=== PATIENT | female | born 1950 | race Caucasian/White ===

== ENCOUNTER → 2016-07-14 | Outpatient (CLI) | payer MEDICARE, OTHER ==
[~2016-07-14] MED LIST: ASPIRIN325 MG PO; CLOTRIMAZOLE-BE45 GM; COCONUT OIL1000 MG PO; COREG 25MG TAB25 MG PO; CYMBALTA60 MG PO; DULOXETINE HCL60 MG PO; FISH OIL 1,2001 EAC1 PO; GLUCOTROL 10 MG10 MG PO; JANUVIA 100 MG100 MG PO; LANTUS SOL100 UNIT/1 SQ; LIORESAL TAB 1010 MG PO; LIPITOR TAB 2020 MG PO; METHOTREXATE2.5 MG PO; NEURONTIN 100100 MG PO; PLAQUENIL 200200 MG PO; PLAVIX 75 MG TA75 MG PO; PROCARDIA XL60 MG PO; SINGULAIR10 MG PO; SYNTHROID125 MCG PO; TYLENOL 500 MG500 MG PO; WELLBUTRIN SR150 M1 PO; ZANTAC300 MG PO
== END ==
LOC: EXRD 13:28
DX: M25.512 Pain in left shoulder (principal); M25.812 Other specified joint disorders, left shoulder; Z98.890 Other specified postprocedural states
CPT/HCPCS: 73030

== ENCOUNTER → 2016-08-24 | Outpatient (CLI) | payer MEDICARE, OTHER | LOC: LAB 13:31 | PROVIDERS: Internal Medicine Nephrology | DX: N18.3 Chronic kidney disease, stage 3 (moderate) (principal) | CPT/HCPCS: 36415; 80053; 82043; 82570; 89050 ==

== ENCOUNTER → 2016-08-29 | Outpatient (CLI) | payer MEDICARE, OTHER ==
[2016-08-29 12:24] LABS: URINE TOTAL PROTEIN 38 mg/dl
== END ==
LOC: LBRF 11:24
PROVIDERS: Internal Medicine Nephrology
DX: N18.3 Chronic kidney disease, stage 3 (moderate) (principal)
CPT/HCPCS: 84156

== ENCOUNTER → 2016-09-07 | Outpatient (CLI) | payer MEDICARE, OTHER | LOC: LAB 13:34 | PROVIDERS: Internal Medicine Nephrology | DX: N18.3 Chronic kidney disease, stage 3 (moderate) (principal) | CPT/HCPCS: 36415; 80053; 82043; 82550; 82570; 84156; 86039; 86160; 86162; 86225; 86334; 86803; 87340 ==

== ENCOUNTER → 2016-09-09 | Outpatient (CLI) | payer MEDICARE, OTHER ==
[2016-09-09 17:06] LABS: URINE TOTAL PROTEIN 30 mg/dl
== END ==
LOC: LBRF 15:40
PROVIDERS: Internal Medicine Nephrology
DX: N18.3 Chronic kidney disease, stage 3 (moderate) (principal)
CPT/HCPCS: 84156

== ENCOUNTER 2016-09-16 12:17 | Observation (INO) | payer MEDICARE, OTHER ==
[~2016-09-16] VITALS: Ht 162.6 cm; Wt 90.7 kg
[2016-09-16 15:09] LABS: HEMOGLOBIN 10.9 gm/dl (12.3-15.3); RED BLOOD COUNT 3.56 M/UL (4.00-5.10)
[2016-09-17] MEDS ORDERED: CYMBALTA60 MG PO (20:47)
[2016-09-17] MEDS ORDERED: COREG 25MG TAB25 MG PO (20:47)
[2016-09-17] MEDS ORDERED: PLAVIX 75 MG TA75 MG PO (20:47)
[2016-09-17] MEDS ORDERED: GLUCOTROL 10 MG10 MG PO (20:48)
[2016-09-17] MEDS ORDERED: JANUVIA 100 MG100 MG PO (20:48)
[2016-09-17] MEDS ORDERED: LANTUS SOL100 UNIT/1 SQ (20:49)
[2016-09-17] MEDS ORDERED: SYNTHROID125 MCG PO (20:49)
[2016-09-17] MEDS ORDERED: LIPITOR TAB 2020 MG PO (20:50)
[2016-09-17] MEDS ORDERED: ZANTAC300 MG PO (20:50)
[2016-09-17] MEDS ORDERED: PROCARDIA XL60 MG PO (20:50)
[2016-09-17] MEDS ORDERED: ASPIRIN325 MG PO (20:51)
[2016-09-17] MEDS ORDERED: SINGULAIR10 MG PO (20:51)
[2016-09-17] MEDS ORDERED: WELLBUTRIN SR150 M1 PO (20:52)
[2016-09-17] MEDS ORDERED: PLAQUENIL 200200 MG PO (20:52)
[2016-09-17] MEDS ORDERED: NEURONTIN 100100 MG PO (20:53)
[2016-09-17] MEDS ORDERED: METHOTREXATE2.5 MG PO (20:54)
[2016-09-17] MEDS ORDERED: DULOXETINE HCL60 MG PO (20:55)
[2016-09-17] MEDS ORDERED: COCONUT OIL1000 MG PO (20:55)
[2016-09-17] MEDS ORDERED: FISH OIL 1,2001 EAC1 PO (20:56)
[2016-09-17] MEDS ORDERED: TYLENOL 500 MG500 MG PO (20:57)
[2016-09-17] MEDS ORDERED: CLOTRIMAZOLE-BE45 GM (21:01)
[2016-09-17] MEDS ORDERED: LIORESAL TAB 1010 MG PO (21:02)
== END 2016-09-18 19:11 | disposition home or self-care (01) ==
LOC: ER1 12:17 → EDBD 12:17 → MED SURG 4 09-17 00:42 → ZEROF 09-17 00:42 → MED SURG 4 09-17 18:21
PROVIDERS: Emergency Medicine; Internal Medicine; Physician Assistant; ADMIT Family Medicine
DX: R07.9 Chest pain, unspecified (principal); N17.9 Acute kidney failure, unspecified; N18.3 Chronic kidney disease, stage 3 (moderate); I25.10 Atherosclerotic heart disease of native coronary artery without angina pectoris; E11.22 Type 2 diabetes mellitus with diabetic chronic kidney disease; I12.9 Hypertensive chronic kidney disease with stage 1 through stage 4 chronic kidney disease, or unspecified chronic kidney disease; E78.5 Hyperlipidemia, unspecified; M06.9 Rheumatoid arthritis, unspecified; E03.9 Hypothyroidism, unspecified; D63.1 Anemia in chronic kidney disease; R79.1 Abnormal coagulation profile; E66.9 Obesity, unspecified; G89.29 Other chronic pain; F11.20 Opioid dependence, uncomplicated; K21.9 Gastro-esophageal reflux disease without esophagitis; Z79.82 Long term (current) use of aspirin; Z79.02 Long term (current) use of antithrombotics/antiplatelets; Z79.4 Long term (current) use of insulin; Z79.899 Other long term (current) drug therapy; Z95.5 Presence of coronary angioplasty implant and graft; Z90.89 Acquired absence of other organs; Z90.710 Acquired absence of both cervix and uterus; Z87.891 Personal history of nicotine dependence; Z88.8 Allergy status to other drugs, medicaments and biological substances; Z68.35 Body mass index [BMI] 35.0-35.9, adult; Z96.612 Presence of left artificial shoulder joint
CPT/HCPCS: ECHO; 36415; 71010; 71020; 78452; 80048; 80053; 81001; 82550; 82553; 82962; 83735; 83874; 83880; 84484; 85025; 85379; 93005; 93017; 93306; 93970; 93971; 96372; 96374; 96375; 99285; A9502; G0378; J1200; J1650; J1940; J2405; J2785; J8610

== ENCOUNTER 2016-10-20 15:38 | Emergency (ER) | payer OTHER ==
[2016-10-20 20:16] LABS: RED BLOOD COUNT 3.65 M/UL (4.00-5.10); WHITE BLOOD COUNT 6.7 K/UL (4.5-11.0)
== END 2016-10-21 06:09 | disposition short-term general hospital (02) ==
LOC: ER1 15:38
PROVIDERS: Student in an Organized Health Care Education/Training Program
DX: S42.332A Displaced oblique fracture of shaft of humerus, left arm, initial encounter for closed fracture (principal); V89.2XXA Person injured in unspecified motor-vehicle accident, traffic, initial encounter; Y92.410 Unspecified street and highway as the place of occurrence of the external cause; Z96.612 Presence of left artificial shoulder joint
CPT/HCPCS: 29105; 36415; 71010; 73020; 73060; 73070; 73090; 80053; 85025; 85610; 85730; 96374; 96375; 96376; 99283; J2405

== ENCOUNTER → 2020-07-21 | Outpatient (CLI) | payer MEDICARE, OTHER ==
[~2020-07-21] MED LIST changes: +FOLIC ACID 1 MG1 MG PO; +GABAPENTIN300 MG PO; +GERITOL COMPLE1 EACH PO; +IMDUR ER TAB 3030 MG PO; +JANUVIA100 MG PO; +LIPITOR40 MG PO; +NARCAN 2 MG/21 MG/ML SQ; +NEURONTIN600 MG PO; +NORFLEX 100 MG100 MG PO; +ULTRAM50 MG PO
== END ==
LOC: LAB 10:09
DX: N18.30 Chronic kidney disease, stage 3 unspecified (principal)